=== PATIENT | male | born 1980 ===

== ENCOUNTER 2017-09-05 01:11 | Emergency (ER) | payer BC ==
[2017-09-05 01:22] VITALS: BP 149/91
--- NOTE | 2017-09-05 05:18 | Emergency Department Report ---
Minor Respiratory - HPI Chief Complaint: Upper Respiratory Infection Stated Complaint: Fever, Cough,Body Aches Time Seen by Provider: 09/05/17 03:24 Duration: 2 Days Severity: moderate Minor Respiratory: Yes Rhinorrhea, Yes Able to Tolerate Fluids, Yes Cough, Yes Sick Contacts, Yes Fever, No Sore Throat, No Ear Pain, No Hemoptysis, No Chest Pain, No Shortness of Breath Other History: This is a 37 y.o. male presents with chills, fever, aching, nausea, and vomiting. He is visiting family for the holidays and wanted to maker sure he isn't contagious. 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 Patient states he did not get flu shot this year. He is taking theraflu and got nauseous and vomited x 1 yesterday. Denies chest pain, SOB, abdominal pain, and weakness. ED Review of Systems ROS: Stated complaint: Fever, Cough,Body Aches Other details as noted in HPI Constitutional: no symptoms reported, see HPI, chills, fever, malaise. denies: diaphoresis, weakness ENT: as per HPI, congestion. denies: ear pain, throat pain, dental pain, hearing loss, epistaxis Respiratory: no symptoms reported, see HPI, cough. denies: orthopnea, shortness of breath, SOB with exertion, SOB at rest, stridor, wheezing Cardiovascular: as per HPI. denies: chest pain, palpitations, dyspnea on exertion, orthopnea, edema, syncope, paroxysmal nocturnal dyspnea Gastrointestinal: as per HPI, nausea, vomiting. denies: abdominal pain, diarrhea, constipation, hematemesis, melena, hematochezia Musculoskeletal: as per HPI. denies: back pain, joint swelling, arthralgia, myalgia Skin: as per HPI. denies: rash, lesions, change in color, change in hair/nails , pruritus Psychiatric: as per HPI. denies: anxiety, depression, auditory hallucinations, visual hallucinations, homicidal thoughts, suicidal thoughts ED Past Medical Hx - Past Medical History Previous Medical History?: No - Surgical History Past Surgical History?: Yes Additional Surgical History: Facial surgery, Brain surgery, eye surgery - Social History Smoking Status: Current Every Day Smoker Substance Use Type: Alcohol - Medications Home Medications: Home Medications Medication Instructions Recorded Confirmed Last Taken Type Benzonatate 200 mg PO TID #30 capsule 09/05/17 Unknown Rx Fluticasone [Flonase] 1 spray NS QDAY #1 bottle 09/05/17 Unknown Rx Minor Respiratory Exam - Exam General: Vital signs noted. No distress. Alert and acting appropriately. HEENT: Yes Moist Mucous Membranes, Yes Rhinorrhea, No Pharyngeal Erythema, No Pharyngeal Exudates, No Conjuctival Injection, No Frontal Tenderness, No Maxillary Tenderness Ear: Neither TM Bulge, Neither TM Erythema, Neither EAC Pain, Neither EAC Discharge Neck: Yes Supple, No Adenopathy Lungs: Yes Good Air Exchange, Yes Cough, No Wheezes, No Ronchi, No Stridor, No Labored Respirations, No Retractions, No Use of Accessory Muscles, No Other Abnormal Lung Sounds Heart: Yes Regular, No Murmur Abdomen: Yes Normal Bowel Sounds, No Tenderness, No Peritoneal Signs Skin: No Rash, No Edema Neurologic: Alert and oriented, no deficits. Musculoskeletal: Unremarkable. ED Course Vital Signs 09/05/17 09/05/17 01:21 01:23 Temperature 98.5 F 98.5 F Pulse Rate 95 H 95 H Respiratory 18 18 Rate Blood Pressure 149/91 Blood Pressure 149/91 [Right] O2 Sat by Pulse 98 Oximetry Critical care attestation.: If time is entered above; I have spent that time in minutes in the direct care of this critically ill patient, excluding procedure time. ED Disposition Clinical Impression: Nasopharyngitis acute Disposition: DC-01 TO HOME OR SELFCARE Is pt being admited?: No Does the pt Need Aspirin: No Condition: Stable Instructions: Upper Respiratory Infection (ED) Additional Instructions: Wash hands frequently. Continue taking tylenol or ibuprofen for fever control. Increase fluid intake and rest. Return to ER if fever, SOB, chest pain, or difficulty breathing. Follow up with primary care provider. Prescriptions: Benzonatate 200 mg PO TID #30 capsule Fluticasone [Flonase] 1 spray NS QDAY #1 bottle Referrals: PRIMARY CARE, [Primary Care Provider] - 3-5 Days Time of Disposition: 05:23 Print Language: OCCITAN
== END 2017-09-05 05:33 | disposition home or self-care (01) ==
LOC: ED 01:11
DX: J00 Acute nasopharyngitis [common cold] (principal); F17.200 Nicotine dependence, unspecified, uncomplicated
CPT/HCPCS: 87400; 99282